=== PATIENT | male | born 1995 | race Caucasian/White ===

== ENCOUNTER 2016-12-11 16:57 | Emergency (ER) | payer SELFPAY ==
[~2016-12-11] VITALS: Ht 177.8 cm; Wt 89.0 kg
[2016-12-11] MEDS ORDERED: ACETAMINOPHEN 325 MG TABLET ONE (17:13)
[2016-12-11] MEDS ORDERED: PLEASE ENTER ALLERGIES MC SCH ×2 (17:30)
[2016-12-11] MEDS ORDERED: ACETAMINOPHEN 325 MG TABLET PO ONE (17:30)
[2016-12-11] MEDS ORDERED: IBUPROFEN 200 MG TABLET PO ONE (17:30)
[2016-12-11 19:38] VITALS: BP 129/88
== END 2016-12-11 19:45 | disposition home or self-care (01) ==
LOC: ED 19:00
DX: S20.211A Contusion of right front wall of thorax, initial encounter (principal); M94.0 Chondrocostal junction syndrome [Tietze]; W19.XXXA Unspecified fall, initial encounter; Y93.89 Activity, other specified; Y92.89 Other specified places as the place of occurrence of the external cause; Y99.8 Other external cause status
CPT/HCPCS: 71020; 99284

== ENCOUNTER 2016-12-15 12:01 | Emergency (ER) | payer SELFPAY ==
[~2016-12-15] VITALS: Ht 177.8 cm; Wt 87.6 kg
[2016-12-15] MEDS ORDERED: ONDANSETRON ODT 4 MG ONE (13:27)
[2016-12-15] MEDS ORDERED: ONDANSETRON ODT 4 MG PO ONE (13:30)
[2016-12-15 14:27] VITALS: BP 117/60
== END 2016-12-15 14:31 | disposition home or self-care (01) ==
LOC: ED 14:25
DX: S09.90XA Unspecified injury of head, initial encounter (principal); S19.9XXA Unspecified injury of neck, initial encounter; R11.0 Nausea; X58.XXXA Exposure to other specified factors, initial encounter; Y93.89 Activity, other specified; Y92.89 Other specified places as the place of occurrence of the external cause; Y99.8 Other external cause status
CPT/HCPCS: 70450; 72125; 99284; Q0162

== ENCOUNTER 2017-02-28 12:20 | Emergency (ER) | payer OTHER ==
[~2017-02-28] VITALS: Ht 172.7 cm; Wt 84.0 kg
[2017-02-28 13:37] VITALS: BP 140/84
== END 2017-02-28 14:32 | disposition home or self-care (01) ==
LOC: ED 12:36
DX: F15.129 Other stimulant abuse with intoxication, unspecified (principal); F41.1 Generalized anxiety disorder; Z88.1 Allergy status to other antibiotic agents; Z88.6 Allergy status to analgesic agent
CPT/HCPCS: 99283

== ENCOUNTER 2017-03-14 12:55 | Emergency (ER) | payer OTHER ==
[~2017-03-14] VITALS: Ht 177.8 cm; Wt 82.0 kg
[2017-03-14] MEDS ORDERED: SODIUM CHLORIDE 0.9% 1,000ML IVBOLUS ONE (13:30)
[2017-03-14] MEDS ORDERED: LORazepam 1MG TABLET PO ONE (13:30)
[2017-03-14] MEDS ORDERED: LORazepam 1MG TABLET ONE (13:38)
[2017-03-14 13:54] LABS: HEMATOCRIT 44.6 % (39.2-51.8); HEMOGLOBIN 14.9 g/dL (13.7-18.0); WHITE BLOOD COUNT 14.9 x10^3/uL (3.4-10)
[2017-03-14 14:03] LABS: BLOOD UREA NITROGEN 17 mg/dL (7-18)
[2017-03-14 14:11] LABS: IS PT STATUS REG ER OR PRE ER? YES
[2017-03-14 17:07] VITALS: BP 153/71
== END 2017-03-14 17:13 | disposition home or self-care (01) ==
LOC: ED 15:57
DX: F15.129 Other stimulant abuse with intoxication, unspecified (principal); F41.9 Anxiety disorder, unspecified; R00.2 Palpitations; Z88.1 Allergy status to other antibiotic agents; F17.200 Nicotine dependence, unspecified, uncomplicated
CPT/HCPCS: 36415; 71010; 80048; 82040; 84443; 84484; 85025; 93005; 96360; 99285; J7030

== ENCOUNTER 2017-04-21 16:25 | Emergency (ER) | payer SELFPAY ==
[~2017-04-21] VITALS: Ht 177.8 cm; Wt 79.5 kg
[2017-04-21 17:44] VITALS: BP 137/81
== END 2017-04-21 17:47 | disposition home or self-care (01) ==
LOC: ED 17:30
DX: S00.81XA Abrasion of other part of head, initial encounter (principal); S00.31XA Abrasion of nose, initial encounter; Y04.0XXA Assault by unarmed brawl or fight, initial encounter; Y93.89 Activity, other specified; Y92.488 Other paved roadways as the place of occurrence of the external cause; Y99.8 Other external cause status; Y92.410 Unspecified street and highway as the place of occurrence of the external cause
CPT/HCPCS: 70450; 99284

== ENCOUNTER 2020-12-04 23:44 | Emergency (ER) | payer MEDICAID, OTHER ==
[~2020-12-04] VITALS: Ht 180.3 cm; Wt 68.2 kg
[2020-12-04 23:47] VITALS: BP 123/78
[2020-12-05 00:26] LABS: BASOPHILS % (AUTO) 1 % (0-1); EOSINOPHILS % (AUTO) 1 % (1-7); LYMPHOCYTES % (AUTO) 18 % (22-44); MEAN CORPUSCULAR HEMOGLOBIN 30.6 pg (27.5-34.5); MEAN CORPUSCULAR HGB CONC 33.6 g/dL (33.2-36.2); MEAN PLATELET VOLUME 9.8 fL (7.4-10.4); MONOCYTES % (AUTO) 6 % (2-9); NEUTROPHILS % (AUTO) 74 % (42-75); PLATELET COUNT 185 x10^3/uL (130-400); RED BLOOD COUNT 5.29 x10^6/uL (4.38-5.82); RED CELL DISTRIBUTION WIDTH 13.1 % (9.4-14.8)
[2020-12-05 00:27] LABS: MD NO
[2020-12-05] MEDS ORDERED: ZIPRASIDONE 20 MG INJ IM ONE (00:30)
[2020-12-05 00:38] LABS: ALBUMIN 4.3 g/dL (3.4-5.0); ANION GAP 15 mmol/L (5-15); CALCIUM 9.4 mg/dL (8.5-10.1); CHLORIDE 111 mmol/L (98-107); CREATININE 1.29 mg/dL (0.7-1.3); SALICYLATE LEVEL 1.8 mg/dL (2.8-20.0)
--- NOTE | 2020-12-05 00:54 | NUR ---
task rn: pt in room yellind and cussing at staff aggresively. escorted out by security d/t hostile behavior
== END 2020-12-05 00:57 | disposition home or self-care (01) ==
LOC: ED 12-05 00:14
DX: F15.129 Other stimulant abuse with intoxication, unspecified (principal); Z72.9 Problem related to lifestyle, unspecified; R05 Cough
CPT/HCPCS: 36415; 71045; 80048; 80299; 80320; 80329; 82040; 85025; 99284; G0480